=== PATIENT | female | born 1965 | race Caucasian/White ===

== ENCOUNTER 2023-03-17 07:28 | Outpatient (CLI) | payer MEDICARE, MEDICAID, SELFPAY | END 2023-03-17 07:29 | disposition home or self-care (01) | LOC: ANHAUDIO 07:29 | PROVIDERS: PCP Family Medicine; Visit Provider Otolaryngology | DX: H90.3 Sensorineural hearing loss, bilateral (principal) | CPT/HCPCS: 92557; 92567 ==

== ENCOUNTER 2023-04-01 08:04 | Outpatient (CLI) | payer MEDICARE, MEDICAID, SELFPAY ==
--- NOTE | ~2023-04-01 | XR_ITS ---
EXAMINATION: XR knee LT min 4V DATE: 04/01/2023 08:35 INDICATION: Left knee pain. TECHNIQUE: 4 views of left knee were obtained. COMPARISON: None. FINDINGS: Bone alignment is normal. No fracture. There is mild osteoarthritis of medial and patellofe moral compartments characterized by tiny osteophytes. No joint space narrowing. No knee joint effusio n. There is soft tissue swelling medial to left knee. IMPRESSION: 1. Mild left knee osteoarthritis. 2. Soft tissue swelling medial to left knee. Reviewed, dictated and finalized at location A.
== END 2023-04-01 08:05 | disposition home or self-care (01) ==
LOC: CHSIMG 08:10
PROVIDERS: PCP Family Medicine; Visit Provider Orthopaedic Surgery
DX: M25.562 Pain in left knee (principal); M17.12 Unilateral primary osteoarthritis, left knee; M79.89 Other specified soft tissue disorders
CPT/HCPCS: 73564

== ENCOUNTER 2023-05-10 10:41 | Outpatient (CLI) | payer MEDICARE, MEDICAID, SELFPAY ==
--- NOTE | 2023-05-10 11:23 | ECG_ITS ---
Measurements Intervals [place] Rate: 69 P: 77 WA: 135 QRS: 62 QRSD: 81 T: 63 QT: 404 QTc: 433 Interpretive Statements SINUS RHYTHM POSSIBLE LEFT ATRIAL ENLARGEMENT MINIMAL Q WAVES- INFERIOR LEADS BASELINE WANDER- I, II, AVR, AVL, AVF, V3-V6 BORDERLINE ECG NO PREVIOUS ECG AVAILABLE FOR COMPARISON Electronically Signed On 05-10-2023 18:21:32 CDT by Sav Dykes D.O.
== END 2023-05-10 10:42 | disposition home or self-care (01) ==
PROVIDERS: PCP Family Medicine; Visit Provider Anesthesiology
DX: F17.210 Nicotine dependence, cigarettes, uncomplicated (principal); Z01.818 Encounter for other preprocedural examination; R94.31 Abnormal electrocardiogram [ECG] [EKG]
CPT/HCPCS: 93005

== ENCOUNTER 2023-05-16 00:06 | Day surgery (SDC) | payer MEDICARE, MEDICAID, SELFPAY ==
[2023-05-09 10:42] VITALS: BMI 20.2
--- NOTE | 2023-05-09 10:54 | PC.NURSE ---
Report to the Outpatient Waiting Room, entrance under the green pavilion located off [facility], at time 7:00 on date 05/16/23. Planned Procedure Time: 9:00. Time changes happen often and if your time is changed the preop area will call you the afternoon before. - You and your visitor will be asked to self-screen and do not enter if you have any COVID symptoms. - A mask is optional within the hospital at this time. Patients may have clear liquids (water, carbonated beverages, clear teas, apple juice) until 3 hours prior to surgery (6:00) with a maximum of 20 ounces. - No food from midnight until time of surgery Take the following medications with a SIP of water the morning of surgery: INHALERS, EYE DROP, LEVOTHYROXINE DO NOT STOP ANY OF YOUR OTHER PRESCRIPTION MEDICATIONS PRIOR TO SURGERY ?EXCEPT THE FOLLOWING Medications to discontinue per physician: VITAMINS/SUPPLEMENTS Date to take last dose: 05/12/23 Please no make-up, nail moldovan, hairspray, perfume, deodorant, or body powder the day of surgery. No jewelry (including any body piercings) or valuables the day of surgery, leave them at home. Please take a shower or bath the night before, or the morning of, surgery with an antibacterial soap. Wear comfortable, loose fitting clothing. - Jewelry must be removed prior to entering the operating room. Rings and piercings that are not removed may be cut off. - The hospital will not accept responsibility for valuables. - Please leave all valuables, including medications, at home the day of surgery. If you are going home after surgery, a licensed regional owner operator truck driver must drive you home. - NO public transportation without another adult if you receive anesthesia. - We recommend that an adult stay with you for 24 hours following discharge. - We also recommend that you do not drive, make important decision, drink alcoholic beverages, or take any drugs that were not prescribed by your health care provider for at least 24 hours after your discharge time. Follow any additional instructions given to you from your surgeon. If you or anyone in your household have experienced Covid symptoms in the past week, please notify your surgeon or the nurse liaison at the phone number below for possible testing. Telephone instructions given to PT - JULIO CRANE and asked if any additional questions and then verbalized understanding. Patient advised to call surgeon office or pre surgery nurse liaison [phone] if any additional questions.
[2023-05-16] VITALS (8 sets, daily range): BP systolic 118–143; BP diastolic 77–96; PULSE 61–73; RESP 10–20; TEMP 36.4–37; O2SAT 94–100
[2023-05-16] MEDS: ACETAMINOPHEN 500 MG TABLET 1000 MG PO (07:20)
--- NOTE | 2023-05-16 07:24 | WPDHPUPDATE1 ---
History and Physical Update Update Date/Time: 05/16/23 07:24 History and Physical has been reviewed, including an updated exam of the patient. There are NO changes in the patient's condition. Risks, benefits, and alternatives have been discussed and questions answered. Patient agrees to proceed with procedure.
[2023-05-16] MEDS: LACTATED RINGERS 1,000 ML 30 ML IV CONT ×2 (08:00→11:16)
--- NOTE | 2023-05-16 09:04 | WPDANESEPPF ---
Anes - Initial Pre Proc Eval Procedure: Operation Date: 05/16/23 09:00 Proposed Procedures p Left Knee Arthroscopy, with Excision of Mass - Quintin Valles MD Date/Time: 05/16/23 09:04 Surgeon: Quintin Valles MD Pre Op Diagnosis: left knee medial meniscus tear, meniscal cyst Patient Data Age: 58 Gender: F Height: 1.64 m Weight: 53.7 kg Last Vital Signs Temp 37.0 C 05/16/23 07:04 Pulse 72 05/16/23 07:04 Resp 20 05/16/23 07:04 BP 138/77 05/16/23 07:04 Pulse Ox 100 05/16/23 07:04 O2 Del Method Room Air 05/16/23 07:04 Allergies Allergy/AdvReac Type Severity Reaction Status Date / Time codeine AdvReac HYPERACTIVI Verified 05/16/23 07:05 TY/TIREDNES S Home Medications Medication Instructions Recorded Confirmed Type albuterol sulfate 90 mcg/actuation 1 - 2 inh inhalation Q6H PRN 03/11/23 05/16/23 History aerosol inhaler Bronchospasm cholecalciferol (vitamin D3) 25 25 mcg PO DAILY 03/11/23 05/16/23 History mcg (1,000 unit) capsule estradiol 0.1 mg/24 hr weekly 1 patch transdermal WEEKLY 03/11/23 05/16/23 History transdermal patch ipratropium 0.5 mg-albuterol 3 mg 3 ml inhalation QID PRN 03/11/23 05/13/23 History (2.5 mg base)/3 mL nebulization Bronchospasm soln levothyroxine 75 mcg capsule 75 mcg PO DAILY 03/11/23 05/16/23 History mupirocin 2 % topical ointment 1 applic topical BID PRN FEVER 03/11/23 05/13/23 History BLISTERS chlorhexidine gluconate 4 % 1 applic topical DAILY #237 mL 05/07/23 05/16/23 Rx topical liquid (Hibiclens) Lactobacillus 1 cap PO DAILY 05/09/23 05/16/23 History acidophilus-Bifidobac.animalis 2.5 billion cell capsule (Daily Probiotic) budesonide 160 mcg-glycopyr 9 2 inh inhalation BID 05/09/23 05/16/23 History mcg-formot 4.8 mcg/actuation HFA inhaler (Breztri Aerosphere) montelukast 10 mg tablet 10 mg PO HS 05/09/23 05/16/23 History prednisolone acetate 1 % eye 1 drp RIGHT EYE DAILY 05/09/23 05/16/23 History drops,suspension Patient hx anesthesia problems: post op nausea/vomiting Family hx anesthesia problems: none Results Review: All pre-operative results and documents have been reviewed as part of the pre-operative evaluation. [facility] Past Medical History Medical History Arthritis Asthma Crohn's colitis GERD (gastroesophageal reflux disease) Hypertension IBS (irritable bowel syndrome) Kidney failure (~2019) Surgical History Surgical History H/O thyroidectomy Family History Family History Mother Cancer Father Hypertension Social History Social History Social History: Caffeine- daily Smoking packs per day: 1 Smoking cigarettes per day: 20.0 Years smoked: 30 Smoking pack-years: 30.00 Smoking status: Current every day smoker Tobacco type: cigarettes Alcohol intake: never Substance use: never Substance use type: does not use Lack of Transportation: No Lack of Food: Never True Current Housing: I Have Housing Concerned About Future Housing: No Difficulty Paying Gas/Electric Bills: No Difficulty Paying for Meds: No Currently Unemployed: No Education: Trade/Vocational Certificate Difficulty w/ Childcare or Family Care: No Living arrangements: alone Spiritual care concerns: No Anes - Eval Final PreProcedure Day of Procedure 05/16/23 09:04 Patient weight: normal Heart: regular rate and rhythm Lungs: decreased breath sounds Airway: Mallampati scale class II Neurological: alert and oriented Last oral intake: >/= 8 hours ASA classification: III Emergent: no Anesthetic plan: proceed Anesthesia type and monitoring: general LMA and standard monitoring Results Review: All pre-operative results and document
[2023-05-16] MEDS: ceFAZolin 2 GM/D5W 50 ML 2 GM/50 ML BAG IVPB (09:40)
[2023-05-16] MEDS: BUPivacaine HCL 0.5% 10 ML AMP 30 ML INFILTRATE (10:22)
[2023-05-16] MEDS: fentaNYL CITRATE INJ (*CRX) 100 MCG/2 ML VIAL 25 MCG IV PUSH ×3 (11:52→12:02)
--- NOTE | 2023-05-16 12:35 | W.PM.PROC2 ---
Procedure Note - Detailed Date of Procedure 05/16/23 Pre-op Diagnosis left knee medial meniscus tear, left knee cyst Post-op Diagnosis Same Procedure Performed LEFT KNEE SCOPE Surgeon Quintin Valles MD Anesthesia General Description of Procedure PATIENT WAS TAKEN TO THE OR. LEFT LEG WAS PREPPED AND DRAPED STERILE. TROCARS WERE PLACED IN THE USUAL FASHION. CAMERA WAS INTRODUCED. THERE WAS CHONDROMALACIA TO THE PATELLA FEMORAL JOINT. THERE WAS A LOT OF SYNOVITIS IN ALL COMPARTMENTS. THE MEDIAL COMPARTMENT SHOWED CHONDROMALACIA TO THE MEDIAL FEMORAL CONDYLE. A SHAVER WAS USED TO PREFORM A CHONDROPLASTY. THERE WAS A COMPLEX MEDIAL MENISCUS TEAR. THE TEAR WAS RESECTED WITH A BITER AND A SHAVER DOWN TO A SMOOTH BASE. ABOUT 30% OF THE MENISCUS WAS REMOVED. THE ACL WAS INTACT. THE LATERAL MENISCUS WAS NOT TORN. THE LAT COMPARTMENT HAD MINIMAL CHONDROMALACIA. A SYNOVECTOMY WAS PREFORMED. THE PATELLO FEMORAL JOINT UNDERWENT MINIMAL CHONDROPLASTY. THERE WAS GRADE 2 CHONDROMALACIA IN PART OF THE TROCHLEA AND PART OF THE PATELLA. SYNOVECTOMY WAS PREFORMED IN THE SUPERIOR MEDIAL COMPARTMENT. THE WOUNDS WERE APPROXIMATED WITH 4.0 NYLON. NEXT THE MEDIAL SIDE OF THE KNEE WAS IDENTIFIED. THE OLD SCAR WAS IDENTIFIED ON THE MEDIAL SIDE OF THE KNEE. AN INCISION WAS MADE DOWN THROUGH THE SUBCUTANEOUS TISSUES TILL THE FACIA WAS IDENTIFIED. THERE WAS A GANGLION CYST JUST SUPERFICIAL TO THE MCL. THE CYST WAS DISSECTED AND REMOVED IN ITS ENTIRETY FORM THE SURFACE OF THE MCL. THE MCL WAS INTACT. THE WOUND WAS WASHED WITH STERILE WATER. THE SUB CUTANEOUS LAYER WAS REPAIRED WITH 2-0 VICRYL AND THE SKIN WAS APPROXIMATED WITH 3-0 STRATAFIX. DERMABOND WAS APPLIED TO THE SKIN. STERILE DRESSING WAS APPLIED. PATIENT WAS EXTUBATED. Estimated Blood Loss 5 Complications No immediate complications Condition Stable Disposition PACU
[2023-05-16] MEDS: oxyCODONE HCL (*CRX) 5 MG TAB IR PO (12:54)
[2023-05-16] MEDS: ONDANSETRON INJ 4 MG/2 ML VIAL IV PUSH (13:31)
== END 2023-05-16 13:39 | disposition home or self-care (01) ==
PROVIDERS: PCP Family Medicine; Visit Provider Orthopaedic Surgery
PROC: (CPT 29870; principal; 2023-05-16 09:00)
DX: M23.332 Other meniscus derangements, other medial meniscus, left knee (principal); M67.462 Ganglion, left knee; M65.862 Other synovitis and tenosynovitis, left lower leg; M22.42 Chondromalacia patellae, left knee; Z79.51 Long term (current) use of inhaled steroids; I10 Essential (primary) hypertension; K21.9 Gastro-esophageal reflux disease without esophagitis; K50.90 Crohn's disease, unspecified, without complications; J45.909 Unspecified asthma, uncomplicated; E89.0 Postprocedural hypothyroidism; F17.210 Nicotine dependence, cigarettes, uncomplicated
CPT/HCPCS: 29881; 27347; 88304; 93005; A9270; J0690; J1100; J2405; J2704; J3010; J7120